=== PATIENT | female | born 1945 | race Caucasian/White ===

== ENCOUNTER 2018-11-07 13:08 | Emergency (ER) | payer MEDICARE, BC ==
[~2018-11-07] VITALS: Ht 154.9 cm; Wt 90.7 kg
[2018-11-07] MEDS ORDERED: OXYC15ER PO (14:15)
== END 2018-11-07 14:51 | disposition home or self-care (01) ==
LOC: ER 13:08
DX: S80.02XA Contusion of left knee, initial encounter (principal); W05.0XXA Fall from non-moving wheelchair, initial encounter
CPT/HCPCS: 73564; 73590; 73630; J1170

== ENCOUNTER 2019-06-11 01:30 | Inpatient (IN) | payer MEDICARE, OTHER ==
[~2019-06-11] VITALS: Ht 157.5 cm; Wt 81.5 kg
[~2019-06-11 01:30] MED LIST: OXYC15ER PO
[2019-06-11 02:14] LABS: PCO2 Arterial 77.5 mmHg (35-45); PO2 Arterial 102 mmHg (80-100); pH Blood Arterial 7.29 (7.35-7.45)
[2019-06-11 02:18] LABS: BASOPHILS ABSOLUTE AUTO 0.03 K/mm3 (0.00-0.23); BASOPHILS PERCENT AUTO 0 % (0-2); EOSINOPHILS PERCENT AUTO 0 % (0-6); Hematocrit 38.3 % (33.0-51.0); IMMATURE GRAN ABSOLUTE AUTO 0.07 K/mm3 (0.00-0.10); IMMATURE GRAN PERCENT AUTO 1 % (0-1); LYMPHOCYTES ABSOLUTE AUTO 0.83 K/mm3 (0.84-5.20); LYMPHOCYTES PERCENT AUTO 6 % (21-46); MONOCYTES ABSOLUTE AUTO 0.88 K/mm3 (0.16-1.47); MONOCYTES PERCENT AUTO 7 % (4-13); Mean Corpuscular HGB 27.2 pg (26.0-34.0); Mean Corpuscular HGB Conc 28.7 g/dL (31.5-36.5); Mean Corpuscular Volume 95 fL (80-100); Mean Platelet Volume 9.8 fL (9.1-12.4); NEUTROPHILS ABSOLUTE AUTO 11.46 K/mm3 (1.96-9.15); NEUTROPHILS PERCENT AUTO 86 % (41-73); Platelet Count 397 K/mm3 (150-400); RDW Coefficient Variation 15.6 % (11.7-14.2); Red Blood Cell Count 4.04 M/mm3 (3.80-5.20); White Blood Cell Count 13.27 K/mm3 (4.00-11.30)
[2019-06-11] MEDS ORDERED: ALBU90OI INH (02:22)
[2019-06-11] MEDS ORDERED: ALBU2.5V5 (02:22)
[2019-06-11] MEDS ORDERED: BACL10 PO ×2 (02:23→09:51)
[2019-06-11] MEDS ORDERED: Cymbalta20 MG (02:24)
[2019-06-11] MEDS ORDERED: DILT120 PO ×2 (02:24→09:46)
[2019-06-11] MEDS ORDERED: DICLOFENAC (02:24)
[2019-06-11] MEDS ORDERED: Hydrochlorothia50 MG PO (02:25)
[2019-06-11] MEDS ORDERED: Loratadine10 MG PO ×2 (02:25→09:47)
[2019-06-11] MEDS ORDERED: LORAZEPAM (02:26)
[2019-06-11] MEDS ORDERED: ZOFRAN (02:27)
[2019-06-11] MEDS ORDERED: OXYCODONE (02:27)
[2019-06-11 02:40] LABS: Alanine Aminotransfer (ALT/SGP 17 U/L (12-78); Albumin, Blood 2.8 g/dL (3.4-5.0); Albumin/Globulin Ratio 0.6 (0.8-1.8); Alk Phos 106 U/L (50-136); Anion Gap 5 mmol/L (6-16); Aspartate Aminotrans (AST/SGOT 15 U/L (12-37); Bilirubin, Total 0.2 mg/dL (0.1-1.0); Blood Urea Nitrogen 19 mg/dL (8-24); Bun/Creatinine Ratio 32.6 (12.0-20.0); CO2, Blood 34 mmol/L (21-32); Calcium, Blood 9.2 mg/dL (8.5-10.1); Chloride, Blood 102 mmol/L (98-108); Creatinine, Blood 0.58 mg/dL (0.40-1.00); Glomerular Filtration Rate >60 (60-); Glucose, Blood 123 mg/dL (70-99); Magnesium, Blood 1.6 mg/dL (1.6-2.4); Potassium, Blood 4.5 mmol/L (3.5-5.5); Sodium, Blood 141 mmol/L (136-145); Total Protein, Blood 7.8 g/dL (6.4-8.2); Troponin I <0.015 ng/mL (0.000-0.040)
--- NOTE | 2019-06-11 07:15 | NUR ---
BEGINNING OF SHIFT Assumed care of pt at 0700 from Nancy HARTMAN. Pt on BiPAP 16/8, 30% FiO2. Pt alert, oriented to self and place. Pt's spouse at bedside. Sinus rhythm per monitor.
[2019-06-11 07:28] LABS: PCO2 Arterial 68.3 mmHg (35-45); PO2 Arterial 100 mmHg (80-100); pH Blood Arterial 7.34 (7.35-7.45)
--- NOTE | 2019-06-11 08:45 | NUR ---
CALL PLACED TO DR STACY Notified provider that pt and family are refusing antibiotics. Family states pt had C. diff previously, therefore they do not want antibiotics unless blood cultures are positive. Provider stated levaquin may be discontinued. Notified provider that pt and spouse are concerned that home pain medication regimen has been discontinued. New orders from provider.
[2019-06-11] MEDS ORDERED: DULO30 PO (09:46)
[2019-06-11] MEDS ORDERED: OXYC15ER PO (09:49)
[2019-06-11] MEDS ORDERED: ALBU2.5V5 INH (09:50)
[2019-06-11] MEDS ORDERED: OXYC5 PO (09:50)
[2019-06-11] MEDS ORDERED: DICLO GEL 1%-X1 EACH TOP (09:52)
[2019-06-11] MEDS ORDERED: HYDCHL50 PO (09:53)
[2019-06-11] MEDS ORDERED: Advil Migraine200 MG PO (09:54)
[2019-06-11] MEDS ORDERED: KETO15TC TOP (09:56)
[2019-06-11] MEDS ORDERED: ONDA4ODT MM (09:57)
[2019-06-11] MEDS ORDERED: LORA.5 PO (09:57)
[2019-06-11] MEDS ORDERED: SENNA LAXATIVE8.6 MG PO (09:58)
[2019-06-11] MEDS ORDERED: BACTRIM DS TAB1 EACH PO (09:59)
--- NOTE | 2019-06-11 14:30 | NUR ---
CALL PLACED TO DR STACY Notified provider that pt has been alert for majority of day, wearing BiPAP. Pt currently on home BiPAP. Pt verbalizes desire to sit in her own chair. Dr Stacy stated pt is okay for medical floor status without telemetry. Discussed pt's pain medication and provider stated pt can be placed on her home pain medication regimen.
--- NOTE | 2019-06-11 16:38 | NUR ---
TRANSFER Pt transferred to medical floor room 332. Telephone report given to Maura HARTMAN. Pt transferred wearing 3 LPM NC. BiPAP moved to new room with RT. Chart, belongings, and medications transferred with patient.
[2019-06-11 16:50] LABS: Adenovirus Not Detected (NOT DETECT); Coronavirus 229E Not Detected (NOT DETECT); Coronavirus HKU1 Not Detected (NOT DETECT); Coronavirus NL63 Not Detected (NOT DETECT); Coronavirus OC43 Not Detected (NOT DETECT); Human Metapneumovirus Not Detected (NOT DETECT)
[2019-06-11 16:51] LABS: Bordetella pertussis Not Detected (NOT DETECT); Chlamydophila pneumoniae Not Detected (NOT DETECT); Human Rhinovirus/Enterovirus Not Detected (NOT DETECT); Influenza A Not Detected (NOT DETECT); Influenza A/2009-H1 Not Detected (NOT DETECT); Influenza A/H1 Not Detected (NOT DETECT); Influenza A/H3 Not Detected (NOT DETECT); Influenza B Not Detected (NOT DETECT); Mycoplasma pneumoniae Not Detected (NOT DETECT); Parainfluenza Virus 1 Not Detected (NOT DETECT); Parainfluenza Virus 2 Not Detected (NOT DETECT); Parainfluenza Virus 3 Not Detected (NOT DETECT); Parainfluenza Virus 4 Not Detected (NOT DETECT); Respiratory Syncytial Virus Not Detected (NOT DETECT)
--- NOTE | 2019-06-11 16:54 | NUR ---
SHIFT SUMMARY 1640 RECEIVED PT TO RM 332 VIA HOME W/C. A&O, PLEASANT AND CO-OP. PT WANTING TO REMAIN IN HOME W/C BED IS NOT COMFORTABLE FOR HER. RECEIVED REPORT FROM ROLAND HARTMAN, PT TO ER LAST NIGHT VIA EMS D/T DIFFICULTY BREATHING. PER REPORT, PT STAYS ON HOME BIPAP / UNLESS SHE HAS VISITORS. PER PT, CONTINENT OF BOWEL AND BLADDER; STANDS AND PIVOTS TO BSC WHEN NEEDED. TOUCH CALL LT FOR ASSIST D/T HX OF POLIO; LUE FLACCID AND RUE WITH LIMITED MOVEMENT AT THE ELBOW. MEDICATED FOR C/O PAIN, "EVERYWHERE". SITTING AT BS IN W/C WATCHING TV. DENIED FURTHER NEEDS.
--- NOTE | 2019-06-11 23:32 | NUR ---
BEGINNING SHIFT SUMMARY ASSUMED CARE OF PT AT 1900. PT WAS SITTING IN HER MONTERIZED WHEELCHAIR, WATCHING TV. THE PT CALLED DURING REPORT BECAUSE HER CPAP WOULD SHUT OFF, HER O2 WAS AT 86%, RT CALLED; THEY COULDNT FIND WHAT WAS WRONG WITH THE MACHINE BUT IT STARTED TO WORK, AND TURNED UP HER O2 TO 7 LITERS. PT HAS A HX OF POLIO SINCE SHE WAS 9 YEARS OLD. THE PTS IS IN THE ROOM WITH HER NOW CARING TO CALL HER NEEDS. HEART SOUNDS TACHY AND REGULAR, PERIPHERAL PULSES STRONG, IV SALINE LOCKED IN HER L FOREARM, EDEMA IN HER L LEG. LUNG SONDS CLEAR BUT DIMINIED AT THE BASES, DENIES SOB/DYSPNEA, PT CURRENTY ON 6 LITERS O2 AND USES HER CPAP AT ALL TIMES UNLESS WHEN TALKING TO FAMILY OR USING THE BATHROOM. BOWEL TONES HYPERACTIVE, PT NEEDS TOTAL FEEDING ASSIST, PT HAS ASKED FOR SEVERAL SNACKS, HER IS FEEDING HER, TAKES HER PILLS WHOLE WITH WATER. PT STANDS AN PIVOTS TO THE BATHROOM. PT HAS REDDNESS UNDERNEATH HER BELLY FOLD, GROIN AREA AND UNDER HER BREASTS, AREA HAS A SSTRONG SMELL, REDNESS AND EDEMA IN L CALF, SCARING FROM OLD INJURY. PT HAS CHRONIC PAIN WHICH SHE MANAGES WITH NORCO AND TYLENOL, PT STATES THAT IT IS POLIO PAIN AND IT WILL NEVER GO AWAY AND REACHES DOWN INTO HER BONES. PT IS CURRENTLY WATCHING TV WITH , PT WILL NOT TRANSFER TO THE BED TO SLEEP AND WILL SLEEP IN HER CHAIR PER REQUEST. CALL LIGHT IN [facility], BED IN LOWEST POSITION, WILL CONTINUE TO MONITOR.
[2019-06-12 05:02] LABS: Hematocrit 35.1 % (33.0-51.0); Hemoglobin 10.4 g/dL (11.5-16.0); Mean Corpuscular HGB Conc 29.6 g/dL (31.5-36.5); NRBC ABSOLUTE 0.02 K/mm3 (0.00-0.02); NRBC Auto 0.1 /100 WBC (0.0-0.2); Platelet Count 356 K/mm3 (150-400); RDW Coefficient Variation 15.1 % (11.7-14.2); RDW Standard Deviation 50.5 fL (35.1-46.3); Red Blood Cell Count 3.85 M/mm3 (3.80-5.20); White Blood Cell Count 15.24 K/mm3 (4.00-11.30)
[2019-06-12 05:04] LABS: Mean Corpuscular Volume 91 fL (80-100)
[2019-06-12 05:24] LABS: Alanine Aminotransfer (ALT/SGP 21 U/L (12-78); Albumin, Blood 2.5 g/dL (3.4-5.0); Albumin/Globulin Ratio 0.5 (0.8-1.8); Alk Phos 92 U/L (50-136); Anion Gap 4 mmol/L (6-16); Aspartate Aminotrans (AST/SGOT 12 U/L (12-37); Bilirubin, Total 0.3 mg/dL (0.1-1.0); Blood Urea Nitrogen 36 mg/dL (8-24); Bun/Creatinine Ratio 60.5 (12.0-20.0); CO2, Blood 36 mmol/L (21-32); Calcium, Blood 8.8 mg/dL (8.5-10.1); Chloride, Blood 101 mmol/L (98-108); Globulin, Blood 4.6 g/dL (2.2-4.0); Glomerular Filtration Rate >60 (60-); Glucose, Blood 132 mg/dL (70-99); Potassium, Blood 4.6 mmol/L (3.5-5.5); Sodium, Blood 141 mmol/L (136-145); Total Protein, Blood 7.1 g/dL (6.4-8.2)
--- NOTE | 2019-06-12 05:31 | NUR ---
END SHIFT SUMMARY NO ACUTE CHANGES NOTED THROUGHOUT THE SHIFT. THE PATIENTS STAYED THE NIGHT SO THAT HE COULD SEE THE DOCTOR IN THE MORNING. THE PATIENT HAS BEEN TITRATED DOWN FROM 7 LITERS TO 4 LITERS, 2.5-3 LITERS IS HER BASELINE, O2 SATURATION IS BETWEEN 92-94%, PTS STATES THAT THIS IS NOT NORMAL FOR HER AND SHE IS USUALLY AT 98%. RT CONSULTED ANS STATED THAT THIS SHOULD BE FINE FOR A WHILE AND TO WATCH HER FOR ANY CHANGES. PT IS CURRENTLY SITTING IN HER CHAIR IN HER ROOM SLEEPING. CALL LIGHT IN REACH, BED IN LOWEST POSITION, WILL CONTINUE TO MONITOR UNTIL DAYSHIFT NURSE ARRIVES.
[2019-06-12 06:32] LABS: Source, Urine Catheter
[2019-06-12 06:37] LABS: Appearance, Urine Clear (Clear); Bilirubin, Urine Neg (Neg); Blood, Urine 4+ (Neg); Color, Urine Yellow (P-Yellow); Glucose Qualitative, Urine Neg (Neg); Ketones, Urine 1+ (Neg); Leukocyte Esterase, Urine 3+ (Neg); Nitrite, Urine Pos (Neg); Protein, Urine 2+ (Neg); Urobilinogen, Urine NORM (Normal)
[2019-06-12 06:47] LABS: Bacteria Many /hpf; Calcium Oxalate Crystals Few /hpf; Red Blood Cells, Urine 0-2 /hpf (0-2); Squamous Epithelial Cells Few /hpf (Few)
[2019-06-12 06:48] LABS: Mucus Light (0-Heavy)
--- NOTE | 2019-06-12 13:53 | NUR ---
SHIFT SUMMARY NO ACUTE CHANGES TO PRESENT THIS SHIFT. PT HAS BEEN AWAKE MOST OF THE DAY, THOUGH SLEEPING AT THIS TIME. PT HAS REMAINED IN HER OWN W/C SINCE COMING TO THIS UNIT AND REPORTED THAT SHE MOVES AROUND IN IT. PT STATED THAT HER W/C ROTATES HER WELL RECLINES. DISCUSSED CONCERN FOR SKIN BREAK DOWN FROM REMAINING ON BUTTOCKS. REPORTED THAT THEY ARE VERY CAREFUL TO PT CLEAN AND DRY, MONITORING FOR SKIN BREAKDOWN. YEAST UNDER BL BREASTS AND ABD SKIN FOLDS HAVE IMPROVED WITH NYSTATIN. DRY RED SCARRING REMAINS. PT REPORTED ASSISTED WITH GETTING HER TO THE BSC A COUPLE OF TIMES TO VOID. NO S/SX'S OF DIFFICULTY BREATHING NOTED OR REPORTED. PT REMAINS ON BIPAP AROUND THE CLOCK AND ONLY REMOVES FOR BITES OF FOOD AND REPLACES WHILE CHEWING. MEDICATED FOR PAIN PER EMAR NEEDED. PT HAS BEEN A&O, PLEASANT AND CO-OP. IN RM AT ASSISTS WITH CARE AND FEEDING. TOUCH CALL LT IN REACH.
--- NOTE | 2019-06-12 17:30 | NUR ---
BED BATH OFFERED THIS AM. PT'S REPORTED TONIGHT THAT PT WAS READY NOW. PT REMAINED IN W/C FOR PART OF BED BATH. PT ABLE TO STAND AND LEAN ON CHAIR AT BS FOR BACK SIDE. ZINC OINTMENT APPLIED TO COCCYX. REMINDED TO KEEP CLEAN AND DRY, WELL TREATING NEEDED TO KEEP FROM FURTHER BREAKDOWN. PT REFUSES TO LAY IN BED AT ALL TO REDUCE PRESSURE ON BUTTOCKS OR ALLOW AIR ACCESS TO BOTTOM. WILL CONTINUE TO MONITOR AND REPORT OFF TO ONCOMING RN.
--- NOTE | 2019-06-13 03:57 | NUR ---
SHIFT SUMMARY PATIENT HAD NO ACUTE CHANGES OBSERVED. AXOX 3 STAYING IN HER OWN W/C. SPOUSE PRESENT / SHIFT AND DAUGHTER CAME IN FOR RELIEF. NYSTATIN POWDER FOR YEAST UNDER BREAST AND ABD FOLDS. USES BIPAP 02/02. ON 3.5 L O2 STATING 95% ON CONTINUOUS PULSE OXIMETRY. STAND PIVOT TO BR WITH ONE ASSIST AFTER BRING W/C OVER. REPORTED GENERAL PAIN AND OXYCODONE 15 MG GIVEN PER EMAR. TYLENOL X ONE FOR LOVE. VSS/AFEBRILE. DENIES N/V AND SOB. HX POST POLIO. COOPERATIVE WITH CARE. CALL LIGHT IN REACH. BED IN LOWEST POSITION. WILL CONTINUE TO MONITOR UNTIL DAY SHIFT NURSE ASSUMES CARE.
[2019-06-13 06:05] LABS: Anion Gap 3 mmol/L (6-16); Blood Urea Nitrogen 33 mg/dL (8-24); Bun/Creatinine Ratio 66.8 (12.0-20.0); CO2, Blood 37 mmol/L (21-32); Calcium, Blood 8.6 mg/dL (8.5-10.1); Chloride, Blood 101 mmol/L (98-108); Creatinine, Blood 0.49 mg/dL (0.40-1.00); Glomerular Filtration Rate >60 (60-); Glucose, Blood 97 mg/dL (70-99); Potassium, Blood 4.5 mmol/L (3.5-5.5); Sodium, Blood 141 mmol/L (136-145)
[2019-06-13] MEDS ORDERED: ROXICODONE5 MG PO (11:29)
[2019-06-13] MEDS ORDERED: Pedi-Dri 100,0060 GM TOP (11:31)
--- NOTE | 2019-06-13 14:09 | NUR ---
THIS MORNING DR SEGURA ROUNDED ON PATIENT AND DISCUSSED HER DC PLAN FOR TODAY WITH THE PT AND HER DAUGHTER. THE DOCTOR NOTIFIED THIS NURSE VERBALLY THAT THE PT WAS READY FOR DC AND HE WOULD BE PUTTING IN DC ORDERS AND THIS WAS RELAYED TO THE PATIENT WHO VERBALIZED AN UNDERSTANDING. THIS NURSE REVIEWED ALL MEDICATION ORDERS AND DC INSTURCTION WELL THE FOLLOW UP APPT THAT WAS SCHEDULED WITH THE PT PCP IN [place] AND THE PT AND THE BOTH VERBALIZED AN UNDERSTANDING AND THE PT IV WAS REMOVED WITH NO ISSUE. ALL QUESTIONS WERE ANSWERED AND THE PT HAD NO CONCERNS AT THIS TIME. THIS NURSE OFFERED THE AQUATIC SCIENTIST TO COME IN AND ASSIST WITH GETTING THE PT DRESSED AND THE PT AGREED THAT SHE WOULD LIKE HELP. WHEN THE AQUATIC SCIENTIST ENTERED THE ROOM THE TOLD THE AQUATIC SCIENTIST THAT HE WOULD NEED TO GO TO THE CAR AND FIND CLOTHES FOR HER AND WOULD LET US KNOW WHEN SHE WAS READY TO GET DRESSED. THE FAMILY THEN CALLED THE AQUATIC SCIENTIST TO THE ROOM TO ASSIST WITH TOILETING WHICH WAS COMPLETED AND THE PT WAS ASSISTED TO GET DRESSED. THE HOSPITAL ESCORT ARRIVED TO THE ROOM TO ASSIST THE PT DOWN TO HER CAR PREVIOUSLY DISCUSSED AND THE PT'S ASKED THEM TO LEAVE STATING THAT THEY WOULD LIKE TO TAKE A NAP AND REST IN THE ROOM BEFORE LEAVING THE HOSPITAL. THIS NURSE SPOKE WITH THE AND NOTIFIED HIM THAT WE WOULD NEED TO NOTIFY THE CHARGE NURSE FOR PERMISSION TO STAY IN THE ROOM AFTER DC. THIS NURSE NOTIFIED THE CHARGE NURSE WHO STATED THAT SINCE THE PT WAS ALREADY DCD THEY DID INFACT NEED TO LEAVE DISCUSSED. THIS WAS RELAYED TO THE PT AND HER . THE THEN PROCEEDED TO TELL THIS NURSE THAT HE WANTED TO TALK TO THE PT ADVOCATE AND THE DOCTOR BECAUSE HE FELT THEY HAD BEEN "RUSHED" OUT. AT THIS TIME THE CLINICAL COORDINATOR WAS NOTIFIED AND SHE NOTIFIED THE MULTIMEDIA ENGINEER AND THE PT ADVOCATE. THE DOCTOR WAS OVERHEAD PAGED. THE PT THEN CALLED THIS NURSE TO THE ROOM TO REPORT THAT THE PT NOW HAS AN "UPSET STOMACH". THE PT ADVOCATE ENETERED THE ROOM AND SPOKE WITH THE PATIENT AND HER AT LENGTH. THE DOCTOR IS NOW IN THE ROOM WITH THE PT AND HER DISCUSSING THE DC PLAN.
--- NOTE | 2019-06-13 15:10 | NUR ---
PT WAS MEDICATED FOR NAUSEA ORDERED AND HER AND HER STILL REMAIN IN THE ROOM.
--- NOTE | 2019-06-13 16:31 | NUR ---
SHIFT SUMMARY: PT JUST NOW DCD HOME WITH HER . SHE WAS STABLE UPON DC AND ALL PERSONAL BELONGINGS WERE SENT WITH THE PT. PT WAS TRANSPORTED TO PERSONAL VEHICLE IN HER POWER CHAIR BY HER .
== END 2019-06-13 16:30 | disposition home or self-care (01) | DRG 189 ==
LOC: ER 01:30 → MEDS 04:28 → EDBD 04:28 → ICUW 04:28 → MEDS 04:28 → ICUW 04:50 → MEDS 16:25 → ENPENDDIS 06-13 12:59 → MEDS 06-13 16:30
PROVIDERS: Emergency Medicine; Hospitalist; ADMIT Internal Medicine
DX: J96.21 Acute and chronic respiratory failure with hypoxia (principal); G92 Toxic encephalopathy; F11.20 Opioid dependence, uncomplicated; J96.22 Acute and chronic respiratory failure with hypercapnia; G89.29 Other chronic pain; G14 Postpolio syndrome; I10 Essential (primary) hypertension; Z99.81 Dependence on supplemental oxygen
CPT/HCPCS: 0099U; 36415; 36600; 71045; 80048; 80053; 81001; 82803; 83605; 83735; 83880; 84145; 84484; 85025; 85027; 87040; 87077; 87086; 87186; 90686; 93005; 93010; 93306; 94644; 94660; 94762; 96374; 97166; 97535; 99285-25; A9270; J1650; J1956; J2930